=== PATIENT | male | born 1945 | race Caucasian/White ===

== ENCOUNTER 2016-11-19 13:11 | Inpatient (IN) | payer OTHER ==
[~2016-11-19] VITALS: Ht 172.7 cm; Wt 82.1 kg
[~2016-11-19 13:11] MED LIST: ADVAIR 250/501 DISK IH; ALEVE220 MG PO; ASPIR-LOW81 MG PO; ASPIRIN E.C.81 M1 PO; Ambien PO; CRESTOR20 MG PO; Cipro PO; DILAUDID2 MG PO; FEOSOL325 MG PO; Flovent 110 mcg IH; IMDUR30 MG PO; METOPROLOL SUCC25 MG PO; NITROGLYCERIN0.4 MG SL; NITROSTAT,NITR0.4 M1 SL; NORVASC5 MG PO; PREVACID30 MG PO; Prevacid PO; SERTRALINE HCL100 MG PO; TYLENOL EXTRA500 MG PO; Toprol XL PO; Zestril,Prinivil PO; Zocor PO
[2016-11-19 14:14] LABS: HEMATOCRIT 39.2 % (38.0-50.0); MCH 29.5 PG (29.0-34.0); MCHC 33.9 G/DL (30.0-36.0); MCV 86.9 FL (86-99); PLATELET COUNT 241 K/uL (156-360); RBC DIS.WIDTH-CV 14.6 % (11.8-14.6); RBC DIS.WIDTH-SD 45.3 % (39-53); RED BLOOD COUNT 4.51 M/uL (4.00-5.50); WHITE BLOOD COUNT 11.1 K/uL (4.1-10.2)
[2016-11-19 14:23] LABS: CHLORIDE 108 mEq/L (99-109); POTASSIUM 4.1 mEq/L (3.7-5.4); SODIUM 142 mEq/L (136-147)
[2016-11-19 14:25] LABS: GLUCOSE 137 mg/dL (70-99)
[2016-11-19 14:26] LABS: ANION GAP 11 MEQ/L (2-14)
[2016-11-19 14:29] LABS: GFR ESTIMATE (CALCULATED) > 59 mL/min/; TROP-I INTERPRETATION NEGATIVE; TROPONIN-I < 0.01 ng/mL (0.0-0.30)
[2016-11-19 14:30] LABS: UREA NITROGEN (BUN) 28 mg/dL (9-23)
[2016-11-19] MEDS ORDERED: ZOCOR40 MG PO (15:25)
[2016-11-19] MEDS ORDERED: ZOLOFT50 MG PO (15:27)
[2016-11-19] MEDS ORDERED: LEVAQUIN500 MG PO (15:30)
[2016-11-19 15:48] LABS: INTER. NORMALIZED RATIO 1.1; PROTHROMBIN TIME 11.3 (9.2-11.2); PTT 28.2 (25-32)
[2016-11-19 17:51] VITALS: BP 147/77
[2016-11-19 18:00] VITALS: BP 147/77
[2016-11-19 19:00] VITALS: BP 124/57
[2016-11-19 19:48] LABS: TROP-I INTERPRETATION NEGATIVE; TROPONIN-I 0.01 ng/mL (0.0-0.30)
[2016-11-19 23:42] VITALS: BP 138/63
[2016-11-20 01:05] LABS: TROP-I INTERPRETATION NEGATIVE; TROPONIN-I < 0.01 ng/mL (0.0-0.30)
[2016-11-20 04:31] VITALS: BP 170/81
[2016-11-20 06:55] VITALS: BP 147/68
[2016-11-20 06:56] LABS: HEMATOCRIT 39.8 % (38.0-50.0); MCH 28.9 PG (29.0-34.0); MCHC 33.2 G/DL (30.0-36.0); MCV 87.3 FL (86-99); PLATELET COUNT 199 K/uL (156-360); RBC DIS.WIDTH-CV 14.6 % (11.8-14.6); RBC DIS.WIDTH-SD 46.3 % (39-53); RED BLOOD COUNT 4.56 M/uL (4.00-5.50); WHITE BLOOD COUNT 9.9 K/uL (4.1-10.2)
[2016-11-20 07:24] LABS: ANION GAP 8 MEQ/L (2-14); CHLORIDE 105 MEQ/L (99-109); GFR ESTIMATE (CALCULATED) > 59 mL/min/; POTASSIUM 4.5 MEQ/L (3.7-5.4); SAMPLE HEMOLYSIS CHECK 0; SAMPLE ICTERIC CHECK 0; SAMPLE LIPEMIA CHECK 0; SODIUM 140 MEQ/L (136-147); UREA NITROGEN (BUN) 21 mg/dL (9-23)
[2016-11-20 07:34] LABS: GLUCOSE 101 mg/dL (70-99)
[2016-11-20 08:02] LABS: METH RESISTANT S AUREUS PCR NEGATIVE (NEGATIVE)
[2016-11-20 08:03] LABS: PROBE CHECK PASS; SPECIMEN PROCESSING CONTROL PASS
[2016-11-20 11:00] VITALS: BP 123/55
[2016-11-20 14:45] VITALS: BP 130/69
[2016-11-20 19:49] VITALS: BP 123/57
[2016-11-20 23:51] VITALS: BP 114/57
[2016-11-21 04:16] VITALS: BP 120/56
[2016-11-21 07:06] LABS: EOSINOPHIL (%) 1.5 % (0-5); EOSINOPHIL COUNT 0.2 K/uL (0-0.3); HEMATOCRIT 39.4 % (38.0-50.0); IMMATURE GRANULOCYTE (%) 0.5 % (0.0-0.7); IMMATURE GRANULOCYTE COUNT 0.1 K/uL; LYMPHOCYTE COUNT 1.7 K/uL (1.0-2.8); MCH 28.8 PG (29.0-34.0); MCHC 32.7 G/DL (30.0-36.0); MCV 87.9 FL (86-99); MEAN PLAT.VOLUME 9.8 uM^3 (9.0-12.4); MONOCYTE (%) 8.8 % (3-12); NEUTROPHIL (%) 73.2 % (45-76); NEUTROPHIL COUNT 8.1 K/uL (1.8-6.4); PLATELET COUNT 179 K/uL (156-360); RBC DIS.WIDTH-CV 14.9 % (11.8-14.6); RBC DIS.WIDTH-SD 47.6 % (39-53); RED BLOOD COUNT 4.48 M/uL (4.00-5.50)
[2016-11-21 09:46] VITALS: BP 131/22; BP 131/72
[2016-11-21 12:38] VITALS: BP 129/59
[2016-11-21 15:39] VITALS: BP 123/56
[2016-11-21 19:34] VITALS: BP 134/65
[2016-11-21 23:43] VITALS: BP 107/56
[2016-11-22 04:36] VITALS: BP 128/59
[2016-11-22 08:05] VITALS: BP 144/66
[2016-11-22 08:37] LABS: HEMATOCRIT 40.2 % (38.0-50.0); MCH 29.3 PG (29.0-34.0); MCHC 33.6 G/DL (30.0-36.0); MCV 87.4 FL (86-99); MEAN PLAT.VOLUME 10.5 uM^3 (9.0-12.4); PLATELET COUNT 179 K/uL (156-360); RBC DIS.WIDTH-CV 14.9 % (11.8-14.6); RBC DIS.WIDTH-SD 47.3 % (39-53)
[2016-11-22 09:16] LABS: ANION GAP 9 MEQ/L (2-14); CHLORIDE 104 MEQ/L (99-109); GFR ESTIMATE (CALCULATED) > 59 mL/min/; GLUCOSE 104 mg/dL (70-99); POTASSIUM 4.4 MEQ/L (3.7-5.4); SAMPLE HEMOLYSIS CHECK 0; SAMPLE ICTERIC CHECK 0; SAMPLE LIPEMIA CHECK 0; SODIUM 140 MEQ/L (136-147); UREA NITROGEN (BUN) 18 mg/dL (9-23)
[2016-11-22] MEDS ORDERED: BENZONATATE100 MG PO (10:54)
[2016-11-22] MEDS ORDERED: AUGMENTIN875 MG PO (10:54)
[2016-11-22] MEDS ORDERED: VENTOLIN HFA18 GM IH (11:00)
[2016-11-22 11:28] VITALS: BP 124/65
== END 2016-11-22 13:14 | disposition home or self-care (01) | DRG 190 ==
LOC: EME 13:11 → 4EAST 16:02 → EDOF 16:02 → 4EAST 17:43
PROVIDERS: Internal Medicine; Nurse Practitioner Adult Health; Student in an Organized Health Care Education/Training Program
DX: J44.0 Chronic obstructive pulmonary disease with (acute) lower respiratory infection (principal); J18.9 Pneumonia, unspecified organism; J98.11 Atelectasis; J45.909 Unspecified asthma, uncomplicated; J20.9 Acute bronchitis, unspecified; Z95.5 Presence of coronary angioplasty implant and graft; F32.9 Major depressive disorder, single episode, unspecified; K21.9 Gastro-esophageal reflux disease without esophagitis; I10 Essential (primary) hypertension; R94.31 Abnormal electrocardiogram [ECG] [EKG]; R07.81 Pleurodynia; I45.10 Unspecified right bundle-branch block; D72.829 Elevated white blood cell count, unspecified; Z85.46 Personal history of malignant neoplasm of prostate; Z88.6 Allergy status to analgesic agent; Z88.8 Allergy status to other drugs, medicaments and biological substances; Z91.041 Radiographic dye allergy status; Z79.82 Long term (current) use of aspirin
CPT/HCPCS: 71020; 71250; 80048; 84484; 85025; 85027; 85610; 85730; 87040; 87070; 87205; 87641; 93005; 94640; 94640 76; 99202; 99281; 99285; J1650; J2543; J7050